=== PATIENT | male | born 1950 | race Caucasian/White ===

== ENCOUNTER 2018-10-28 01:51 | Emergency (ER) | payer OTHER ==
[2018-10-28 02:29] LABS: Blood O2 Saturation 91.7 % (92-98.5)
[2018-10-28 02:42] LABS: Absolute Lymphocytes (CBC) 2.2 K/uL (0.7-4.9); Absolute Monocytes 1.1 K/uL (0.1-1.3); Absolute Neutrophil 12.2 K/uL (1.8-8.0); Basophils % 0.2 % (0-1.3); Hematocrit 41.9 % (39.6-49.0); Lymphocytes % 14.3 % (15.3-44.8); MPV 9.2 fL (7.6-11.3); Monocytes % 7.1 % (3.3-12.3); RBC Red Blood Cell Count 4.71 M/uL (4.33-5.43)
[2018-10-28 02:43] LABS: Protime INR 1.26
[2018-10-28 02:56] LABS: ALT/SGPT 20 U/L (12-78); AST/SGOT 15 U/L (15-37); Albumin 3.4 g/dL (3.4-5.0); Alkaline Phosphatase 96 U/L (45-117); BUN Blood Urea Nitrogen 18 mg/dL (7-18); Bicarbonate 24 mmol/L (21-32); Bilirubin Direct 0.5 mg/dL (0-0.2); Bilirubin Total 1.2 mg/dL (0.2-1.0); Glucose Level 166 mg/dL (74-106); Magnesium 1.6 mg/dL (1.8-2.4); NT PRO-BNP 1387 pg/mL (<125); Potassium 4.5 mmol/L (3.5-5.1); Protein, Total 7.4 g/dL (6.4-8.2); Sodium Level 136 mmol/L (136-145); Troponin (Emerg Dept Use Only) < 0.02 ng/mL (0.0-0.045)
[2018-10-28] MEDS ORDERED: IPRATROPIUM BROM 0.5MG/2.5ML ONE (03:04)
[2018-10-28] MEDS ORDERED: ALBUTEROL 2.5 MG/3 ML NEB SOL ONE (03:04)
[2018-10-28 03:46] LABS: Blood Morphology Comment NOTED (NOT SEEN); Burr Cells 1+; Platelet Estimate ADEQ
[2018-10-28] MEDS ORDERED: predniSONE 20 MG TAB ONE (04:36)
[2018-10-28] MEDS ORDERED: Magnesium Sulfate 2gm IVPB 2 G/50 ML BAG IV ONE (04:45)
--- NOTE | 2018-10-28 05:58 | EKG ---
Test Date: 2018-10-28 Test Time: 01:58:15 Palliative Care Physician: ANA MEASUREMENT RESULTS: Intervals: Rate: 95 SC: 152 QRSD: 98 QT: 332 QTc: 417 [place]: P: 76 SC: 152 QRS: 81 T: 79 INTERPRETIVE STATEMENTS: Sinus rhythm with premature atrial complexes Anterior infarct, age undetermined Abnormal ECG No previous ECG available for comparison Electronically Signed On 10-28-18 05:57:27 CDT by Rodrigo Nix
--- NOTE | 2018-10-28 06:17 | EDPHYS ---
Physician Documentation [facility] Name: Luis Mabry Age: 68 yrs Sex: Male : 1950 Arrival Date: 10/28/2018 Time: 01:59 Bed 3 Private MD: ED Physician Papa Tolentino HPI: 10/28 06:23 This 68 yrs old Male presents to ER via EMS with complaints of SOB,COUGH. gs 06:23 The patient has shortness of breath at rest. Onset: The symptoms/episode began/occurred gs acutely, just prior to arrival. Duration: The symptoms are continuous. The patient's shortness of breath is aggravated by exertion, is alleviated by nebulizer treatment. Associated signs and symptoms: Pertinent positives: productive cough, fever. Severity of symptoms: At their worst the symptoms were severe in the emergency department the symptoms have improved markedly. The patient has experienced similar episodes in the past, several times. The patient has not recently seen a physician. Historical: - Allergies: 02:09 No Known Allergies; jd3 - Home Meds: 02:09 budesonide oral oral [Active]; fluorouracil topical topical [Active]; Spiriva Respimat jd3 inhalation inhalation [Active]; Symbicort inhalation inhalation [Active]; 04:46 finasteride 5 mg oral tab [Active]; losartan oral oral [Active]; Toprol XL 150 mg Oral jd3 Tb24 [Active]; atorvastatin 80 mg oral tab [Active]; clopidogrel 75 mg oral tab [Active]; aspirin 81 mg Oral chew [Active]; spironolactone 25 mg Oral tab [Active]; - PMHx: 02:09 Myocardial infarction; High Cholesterol; Hypertension; COPD; jd3 04:46 CHF; jd3 - PSHx: 02:09 Heart stents; pace/defib; lip and arm surgery; jd3 - Immunization history:: Adult Immunizations up to date, Adult Immunizations up to date. - Social history:: Smoking status: Patient/guardian denies using tobacco, the patient reports quitting approximately 3 years ago, Smoking status: Patient/guardian denies using tobacco, the patient reports quitting approximately 3 years ago. - Ebola Screening: : No symptoms or risks identified at this time Patient negative for fever greater than or equal to 101.5 degrees Fahrenheit, and additional compatible Ebola Virus Disease symptoms. ROS: 06:23 All other systems are negative. Exam: 06:23 Head/Face: Normocephalic, atraumatic. Eyes: Pupils equal round and reactive to light, gs extra-ocular motions intact. Lids and lashes normal. Conjunctiva and sclera are non-icteric and not injected. Cornea within normal limits. Periorbital areas with no swelling, redness, or edema. ENT: Nares patent. No nasal discharge, no septal abnormalities noted. Tympanic membranes are normal and external auditory canals are clear. Oropharynx with no redness, swelling, or masses, exudates, or evidence of obstruction, uvula midline. Mucous membranes moist. Neck: Trachea midline, no thyromegaly or masses palpated, and no cervical lymphadenopathy. Supple, full range of motion without nuchal rigidity, or vertebral point tenderness. No Meningismus. Chest/axilla: Normal chest wall appearance and motion. Nontender with no deformity. No lesions are appreciated. Cardiovascular: Regular rate and rhythm with a normal S1 and S2. No gallops, murmurs, or rubs. Normal PMI, no JVD. No pulse deficits. 06:23 Abdomen/GI: Soft, non-tender, with normal bowel sounds. No distension or tympany. No guarding or rebound. No evidence of tenderness throughout. Back: No spinal tenderness. No costovertebral tenderness. Full range of motion. Skin: Warm, dry with normal turgor. Normal color with no rashes, no lesions, and no evidence of cellulitis. MS/ Extremity: Pulses equal, no cyanosis. Neurovascular intact. Full, normal range of motion. Neuro: Awake and alert, GCS 15, oriented to person, place, time, and situation. Cranial nerves II-XII grossly intact. Motor strength 5/5 in all extremities. Sensory grossly intact. Cerebellar exam normal. Normal gait. 06:23 Constitutional: The patient appears alert, awake. 06:23 Respiratory: moderate respiratory distress is noted, Respirations: labored breathing, that is mild, Breath sounds: wheezing: expiratory is heard diffusely. :28 ECG was reviewed by the Attending Physician. Vital Signs: 02:05 BP 116 / 67; Pulse 98; Resp 22 S; Temp 99.5(O); Pulse Ox 91% on 4 lpm NC; cc3 02:09 Weight 102.06 kg; Height 5 ft. 10 in. (177.80 cm); Pain 0/10; jd3 03:27 BP 105 / 61; Pulse 82; Resp 20 S; Pulse Ox 92% on 3 lpm NC; jd3 04:29 BP 106 / 69; Pulse 82; Resp 22 S; Pulse Ox 93% on 3 lpm NC; Pain 0/10; jd3 05:29 BP 104 / 66; Pulse 79; Resp 16 S; Pulse Ox 93% on 3 lpm NC; jd3 06:15 BP 125 / 81; Pulse 77; Resp 18 S; Pulse Ox 93% on 3 lpm NC; cc3 02:09 Body Mass Index 32.28 (102.06 kg, 177.80 cm) jd3 MDM: 02:10 Patient medically screened. 06:23 Differential diagnosis: CHF exacerbation, Chronic Obstructive Pulmonary Disease gs Myocardial Infarction pneumonia. Data reviewed: vital signs, nurses notes, lab test result(s), EKG, radiologic studies. Counseling: I had a detailed discussion with the patient and/or guardian regarding: the historical points, exam findings, and any diagnostic results supporting the discharge/admit diagnosis, lab results, radiology results, the need for outpatient follow up. Response to treatment: the patient's symptoms have markedly improved after treatment, the patient's condition has returned to base line, WANTS TO BE DISCHARGED REFUSED ADMISSION. 10/28 02:11 Order name: Basic Metabolic Panel; Complete Time: 03:53 10/28 02:11 Order name: CBC with Diff; Complete Time: 03:53 10/28 02:11 Order name: LFT's; Complete Time: 03:53 10/28 02:11 Order name: Magnesium; Complete Time: 03:53 10/28 02:11 Order name: NT PRO-BNP; Complete Time: 03:53 10/28 02:11 Order name: PT-INR; Complete Time: 03:53 10/28 02:11 Order name: Troponin (emerg Dept Use Only); Complete Time: 03:53 10/28 02:11 Order name: XRAY Chest (1 view) 10/28 02:11 Order name: Flu; Complete Time: 06:14 10/28 02:11 Order name: ABG; Complete Time: 03:53 10/28 02:46 Order name: Manual Differential; Complete Time: 03:53 EDMS 10/28 02:11 Order name: EKG; Complete Time: 02:12 gs 10/28 02:11 Order name: Cardiac monitoring; Complete Time: 02:12 gs 10/28 02:11 Order name: EKG - Nurse/Tech; Complete Time: 02:12 gs 10/28 02:11 Order name: IV Saline Lock; Complete Time: 02:12 gs 10/28 02:11 Order name: Labs collected and sent; Complete Time: 02:23 gs 10/28 02:11 Order name: O2 Per Protocol; Complete Time: 02:12 gs 10/28 02:11 Order name: O2 Sat Monitoring; Complete Time: 02:12 gs EC:28 Rate is 95 beats/min. Rhythm is regular. IA interval is normal. QRS interval is normal gs at 95 msec. Q waves are Old in leads V1, V3. T waves are Flattened. Clinical impression: NSR w/ Non-specific ST/T Changes and Abnormal EKG without significant change. Interpreted by me. Administered Medications: 02:57 Drug: Albuterol 1.25 mg Route: Inhalation; jd3 03:30 Follow up: Response: No adverse reaction jd3 02:57 Drug: AtroVENT Aerosol 0.5 mg Route: Inhalation; jd3 03:30 Follow up: Response: No adverse reaction jd3 04:27 Drug: predniSONE 40 mg Route: PO; jd3 05:33 Follow up: Response: No adverse reaction cc3 04:38 Drug: Magnesium Sulfate 2 grams Route: IVPB; Infused Over: 2 hrs; Site: right [facility] antecubital; 05:33 Follow up: Response: No adverse reaction; IV Status: Completed infusion; IV Intake: [id number] Disposition: 10/28/18 06:17 Discharged to Home. Impression: Chronic obstructive pulmonary disease with (acute) exacerbation. - Condition is Stable. - Discharge Instructions: Chronic Obstructive Pulmonary Disease. - Prescriptions for ipratropium bromide 0.02 % Inhalation solution - inhale 2.5 milliliter by INHALATION route 3-4 times daily as needed; 1 box. Levaquin 500 mg Oral Tablet - take 1 tablet by ORAL route once daily for 5 days; 5 tablet. Albuterol Sulfate 2.5 mg /3 mL (0.083 %) Inhalation Solution for Nebulization - inhale 1 unit by NEBULIZATION route every 8 hours As needed; 1 box. Prednisone 20 mg Oral Tablet - take 2 tablet by ORAL route once daily for 5 days; 10 tablet. - Medication Reconciliation Form, Thank You Letter, Antibiotic Education, Prescription Opioid Use form. - Follow up: Private Physician; When: 1 - 2 days; Reason: Re-evaluation by your physician. Signatures: Dispatcher [employer] Papa Walton MD MD gs Davies, Jonathon, RN RN Otilia Smith cc3 Corrections: (The following items were deleted from the chart) 04:46 02:09 Home Meds: "blood thinner"; jd3 jd3 04:46 02:09 Home Meds: "cholesterol med"; jd3 jd3 04:46 02:09 Home Meds: "blood pressure med"; jd3 jd3 06:37 06:17 10/28/2018 06:17 Discharged to Home. Impression: Chronic obstructive pulmonary jd3 disease with (acute) exacerbation. Condition is Stable. Forms are Medication Reconciliation Form, Thank You Letter, Antibiotic Education, Prescription Opioid Use. Follow up: Private Physician; When: 1 - 2 days; Reason: Re-evaluation by your physician. gs
--- NOTE | 2018-10-28 06:17 | ER ---
Nurse's Notes [facility] Name: Luis Mabry Age: 68 yrs Sex: Male : 1950 Arrival Date: 10/28/2018 Time: 01:59 Bed 3 Private MD: Diagnosis: Chronic obstructive pulmonary disease with (acute) exacerbation Presentation: 10/28 01:59 Presenting complaint: EMS states: "we were called out for a pt with difficulty jd3 breathing. on arrival, his oxygen saturation was 76%, we gave a couple fo neb treatments and got up to 92%. by the time we got here he said he was feeling a lot better.". Transition of care: patient was not received from another setting of care. Onset of symptoms was October 28, 2018. Risk Assessment: Do you want to hurt yourself or someone else? Patient reports no desire to harm self or others. Initial Sepsis Screen: Does the patient meet any 2 criteria? RR > 20 per min. HR > 90 bpm. Yes Does the patient have a suspected source of infection? No. Patient's initial sepsis screen is negative. Care prior to arrival: None. 01:59 Method Of Arrival: EMS: [facility] jd3 01:59 Acuity: FREDDY 2 jd3 Historical: - Allergies: 02:09 No Known Allergies; jd3 - Home Meds: 02:09 budesonide oral oral [Active]; fluorouracil topical topical [Active]; Spiriva Respimat jd3 inhalation inhalation [Active]; Symbicort inhalation inhalation [Active]; 04:46 finasteride 5 mg oral tab [Active]; losartan oral oral [Active]; Toprol XL 150 mg Oral jd3 Tb24 [Active]; atorvastatin 80 mg oral tab [Active]; clopidogrel 75 mg oral tab [Active]; aspirin 81 mg Oral chew [Active]; spironolactone 25 mg Oral tab [Active]; - PMHx: 02:09 Myocardial infarction; High Cholesterol; Hypertension; COPD; jd3 04:46 CHF; jd3 - PSHx: 02:09 Heart stents; pace/defib; lip and arm surgery; jd3 - Immunization history:: Adult Immunizations up to date, Adult Immunizations up to date. - Social history:: Smoking status: Patient/guardian denies using tobacco, the patient reports quitting approximately 3 years ago, Smoking status: Patient/guardian denies using tobacco, the patient reports quitting approximately 3 years ago. - Ebola Screening: : No symptoms or risks identified at this time Patient negative for fever greater than or equal to 101.5 degrees Fahrenheit, and additional compatible Ebola Virus Disease symptoms. Screenin:00 Abuse screen: Denies threats or abuse. Denies injuries from another. Nutritional cc3 screening: No deficits noted. Tuberculosis screening: No symptoms or risk factors identified. Fall Risk Ambulatory Aid- None/Bed Rest/Nurse Assist (0 pts). Gait- Normal/Bed Rest/Wheelchair (0 pts) Mental Status- Oriented to own ability (0 pts). Assessment: 02:10 General: Appears in no apparent distress. uncomfortable, Behavior is calm, cooperative, jd3 appropriate for age. Pain: Denies pain. Neuro: Level of Consciousness is awake, alert, obeys commands, Oriented to person, place, time, situation, Appropriate for age. Cardiovascular: Denies chest pain, Heart tones present Capillary refill < 3 seconds Patient's skin is warm and dry. Respiratory: Reports shortness of breath Airway is patent Respiratory effort is even, unlabored, Respiratory pattern is regular, symmetrical, Breath sounds with wheezes bilaterally. GI: No signs and/or symptoms were reported involving the gastrointestinal system. : No signs and/or symptoms were reported regarding the genitourinary system. EENT: No signs and/or symptoms were reported regarding the EENT system. Derm: Skin is intact, Skin is dry, Skin is normal, Skin temperature is warm. Musculoskeletal: Circulation, motion, and sensation intact. Range of motion: intact in all extremities. 03:00 Reassessment: Patient appears in no apparent distress at this time. Patient and/or jd3 family updated on plan of care and expected duration. Pain level reassessed. Patient is alert, oriented x 3, equal unlabored respirations, skin warm/dry/pink. Patient states feeling better. 03:45 Reassessment: Patient appears in no apparent distress at this time. No changes from jd3 previously documented assessment. Patient and/or family updated on plan of care and expected duration. Pain level reassessed. Patient is alert, oriented x 3, equal unlabored respirations, skin warm/dry/pink. 04:29 Reassessment: Patient appears in no apparent distress at this time. Patient and/or jd3 family updated on plan of care and expected duration. Pain level reassessed. Patient is alert, oriented x 3, equal unlabored respirations, skin warm/dry/pink. 05:29 Reassessment: Patient appears in no apparent distress at this time. Patient and/or jd3 family updated on plan of care and expected duration. Pain level reassessed. Patient is alert, oriented x 3, equal unlabored respirations, skin warm/dry/pink. 06:36 Reassessment: Patient appears in no apparent distress at this time. Patient and/or jd3 family updated on plan of care and expected duration. Pain level reassessed. Patient is alert, oriented x 3, equal unlabored respirations, skin warm/dry/pink. Vital Signs: 02:05 BP 116 / 67; Pulse 98; Resp 22 S; Temp 99.5(O); Pulse Ox 91% on 4 lpm NC; cc3 02:09 Weight 102.06 kg; Height 5 ft. 10 in. (177.80 cm); Pain 0/10; jd3 03:27 BP 105 / 61; Pulse 82; Resp 20 S; Pulse Ox 92% on 3 lpm NC; jd3 04:29 BP 106 / 69; Pulse 82; Resp 22 S; Pulse Ox 93% on 3 lpm NC; Pain 0/10; jd3 05:29 BP 104 / 66; Pulse 79; Resp 16 S; Pulse Ox 93% on 3 lpm NC; jd3 06:15 BP 125 / 81; Pulse 77; Resp 18 S; Pulse Ox 93% on 3 lpm NC; cc3 02:09 Body Mass Index 32.28 (102.06 kg, 177.80 cm) jd3 ED Course: 01:59 Patient arrived in ED. jd3 01:59 Papa Tolentino MD is Attending Physician. gs 02:00 Arm band placed on right wrist. cc3 02:00 Patient has correct armband on for positive identification. Bed in low position. Call cc3 light in reach. Side rails up X2. cafeteria monitor on. Pulse ox on. NIBP on. 02:02 Triage completed. jd3 02:09 EKG completed in triage. Results shown to MD. jd3 02:10 Maintain EMS IV. Dressing intact. Good blood return noted. Site clean \\T\\ dry. Gauge \\T\\ kaleb 3 site: 20 G right AC. 02:12 Ravi Hernandez, RN is Primary Nurse. jd3 02:20 X-ray completed. Portable x-ray completed in exam room. Patient tolerated procedure kw well. 02:22 XRAY Chest (1 view) In Process Unspecified. EDMS 06:36 No provider procedures requiring assistance completed. IV discontinued, intact, jd3 bleeding controlled, No redness/swelling at site. Pressure dressing applied. Administered Medications: 02:57 Drug: Albuterol 1.25 mg Route: Inhalation; jd3 03:30 Follow up: Response: No adverse reaction jd3 02:57 Drug: AtroVENT Aerosol 0.5 mg Route: Inhalation; jd3 03:30 Follow up: Response: No adverse reaction jd3 04:27 Drug: predniSONE 40 mg Route: PO; jd3 05:33 Follow up: Response: No adverse reaction cc3 04:38 Drug: Magnesium Sulfate 2 grams Route: IVPB; Infused Over: 2 hrs; Site: right jd3 antecubital; 05:33 Follow up: Response: No adverse reaction; IV Status: Completed infusion; IV Intake: [id number] Intake: 05:33 IV: 50ml; Total: 50ml. cc3 Outcome: 06:17 Discharge ordered by . 06:36 Discharged to home ambulatory, with family. jd3 06:36 Condition: stable 06:36 Discharge instructions given to patient, family, Instructed on discharge instructions, follow up and referral plans. medication usage, Demonstrated understanding of instructions, follow-up care, medications, Prescriptions given X X 5 06:37 Patient left the ED. jd3 Signatures: Dispatcher [employer] EDMN Norma Lawler Gregory, MD MD Ravi Hernandez, RN RN jd3 Otilia De cc3 Corrections: (The following items were deleted from the chart) 04:46 02:09 Home Meds: "blood thinner"; jd3 jd3 04:46 02:09 Home Meds: "cholesterol med"; jd3 jd3 04:46 02:09 Home Meds: "blood pressure med"; jd3 jd3
--- NOTE | 2018-10-28 08:22 | RAD REPORT ---
EXAM DESCRIPTION: [place] Single View10/28/2018 2:23 am CLINICAL HISTORY: Chest pain COMPARISON: None FINDINGS: The lungs appear clear of acute infiltrate. The heart is normal size. Pacemaker leads are in place. IMPRESSION: No acute abnormalities displayed
== END 2018-10-28 06:37 | disposition home or self-care (01) ==
LOC: ER 01:51
DX: J44.1 Chronic obstructive pulmonary disease with (acute) exacerbation (principal); I25.2 Old myocardial infarction; I10 Essential (primary) hypertension
CPT/HCPCS: 96365; 93005; 85025; 80048; 36415; 83735; 85610; 80076; 84484; 83880; 87804 ×2; 71045; 82805; 99285; J3475; J7512